=== PATIENT | female | born 1965 | race Asian ===

== ENCOUNTER 2017-02-14 21:25 | Emergency (ER) | payer OTHER ==
--- NOTE | 2017-02-14 21:29 | PDOC ---
Rapid Medical Evaluation Time Seen by Provider: 02/14/17 21:27 Medical Evaluation: Allergies Allergy/AdvReac Type Severity Reaction Status Date / Time heparin Allergy Verified 03/19/16 00:22 morphine Allergy Verified 03/19/16 00:22 02/14/17 21:27 I have performed a brief in-person evaluation of this patient. The patient presents with a chief complaint of: rt foot injury after bed wheel went over foot Pertinent physical exam findings:rt 1st toe with discomfort I have ordered the following: toes The patient will proceed to the ED for further evaluation. Discharge Disposition - Referrals Referrals: Meme Santamaria MD [Primary Care Provider] - - Patient Instructions - Post Discharge Activity
[2017-02-14 21:30] VITALS: BP 163/91; PULSE 89; TEMP 97.7; BMI 30.7
[2017-02-14] MEDS ORDERED: IBUPROFEN 600 MG TABLET (FP) PO ONE ×2 (21:57→22:00)
--- NOTE | 2017-02-14 22:01 | PDOC ---
History of Present Illness - General Chief Complaint: Injury Stated Complaint: INJURY AT WORK-[employer] Time Seen by Provider: 02/14/17 21:27 History Source: Patient Exam Limitations: No Limitations - History of Present Illness Initial Comments: 02/14/17 21:58 51 yr female injured left great toe at work states a bed rolled over her toe. pt has broken toenail. Past History - Past Medical History Allergies/Adverse Reactions: Allergies Allergy/AdvReac Type Severity Reaction Status Date / Time heparin Allergy Verified 03/19/16 00:22 morphine Allergy Verified 03/19/16 00:22 Home Medications: Ambulatory Orders Levothyroxine [Synthroid -] 75 mcg PO DAILY 10/23/11 Amlodipine Besylate [Norvasc -] 2.5 mg PO DAILY 02/14/17 Cancer: Yes (colon) COPD: No HTN: Yes Thyroid Disease: Yes (HYPOTHYROID) - Reproductive History Uterine Fibroids: Yes - Immunization History Immunization Up to Date: Yes - Suicide/Smoking/Psychosocial Hx Smoking Status: No Smoking History: Never smoked Have you smoked in the past 12 months: No Number of Cigarettes Smoked Daily: 0 Cigars Per Day: 0 Information on smoking cessation initiated: No Hx Alcohol Use: No Drug/Substance Use Hx: No Substance Use Type: None Review of Systems - Review of Systems Able to Perform ROS?: Yes Is the patient limited [place] proficient: No Constitutional: No: Symptoms Reported Respiratory: No: Symptoms reported Cardiac (ROS): No: Symptoms Reported Musculoskeletal: Yes: Symptoms Reported Integumentary: Yes: Symptoms Reported *Physical Exam - Vital Signs Last Vital Signs Temp Pulse Resp BP Pulse Ox 97.7 F 89 19 163/91 97 02/14/17 21:28 02/14/17 21:28 02/14/17 21:28 02/14/17 21:28 02/14/17 21:28 - Physical Exam General Appearance: No: Nourished, Appropriately Dressed HEENT: negative: EOMI, AAYUSH Extremity: positive: Normal Capillary Refill, Normal Range of Motion, Other ( right great toe without swelling or deformity , FROM nv intact. nail intact has tear to the middle of the nail, no bleeding ) Integumentary: positive: Normal Color, Dry, Warm Neurologic: positive: back shoe cutter II-XII NML intact, Fully Oriented, Alert, Normal Mood/ Affect, Normal Response, Motor Strength 08/05 Medical Decision Making - Medical Decision Making 02/17/17 08:22 cc: toe injury with superficial nail laceration, no bleeding nail is intact at the cuticle xray is negative supportive care given bandaid to cover the torn nail *DC/Admit/Observation/Transfer Diagnosis at time of Disposition: Contusion of toe Qualifiers: Encounter type: initial encounter Toe: great toe Damage to nail status: without damage Laterality: right Qualified Code(s): S90.111A - Contusion of right great toe without damage to nail, initial encounter - Discharge Dispostion Disposition: HOME Condition at time of disposition: Good - Referrals Referrals: Meme Santamaria MD [Primary Care Provider] - Basil Ojeda MD [Staff Physician] - - Patient Instructions Additional Instructions: apply ice every 2hrs for 20 minutes for the next 2 days take motrin as needed for pain follow with the orthopedist for follow up - Post Discharge Activity Forms/Work/School Notes: Back to Work
== END 2017-02-14 22:05 | disposition home or self-care (01) ==
LOC: JERFT 21:25
DX: S90.211A Contusion of right great toe with damage to nail, initial encounter (principal); W22.8XXA Striking against or struck by other objects, initial encounter; Y93.89 Activity, other specified; Y92.238 Other place in hospital as the place of occurrence of the external cause; Y99.0 Civilian activity done for income or pay; I10 Essential (primary) hypertension
CPT/HCPCS: 73660-TC; 99281-25